=== PATIENT | female | born 1960 | race Caucasian/White ===

== ENCOUNTER 2025-01-20 10:25 | Outpatient (CLI) | payer MEDICARE, OTHER ==
--- NOTE | 2025-01-20 13:23 | RADIOLOGY REPORT ---
INDICATION: CAROTID BRUIT COMPARISON: None TECHNIQUE: CTA neck with intravenous contrast. 3D image postprocessing was performed on a dedicated workstation and images were used for interpretation and reporting. Radiation Dose Information: CT Dose: CTDI volume is 17.9 mGy. Dose-length product is 483.6 mGy*cm FINDINGS: CTA neck: The visualized thoracic aortic arch and proximal great vessels are unremarkable. Approximately 50% short-segment stenosis of the proximal bilateral internal carotid artery secondary to presence of atherosclerotic plaque. The cervical segments of the right and left vertebral arteries are within normal limits. The limited visualized lung apices are clear. Degenerative changes of the spine. IMPRESSION: Approximately 50% short-segment stenosis of the proximal bilateral internal carotid artery secondary to presence of atherosclerotic plaque. All CT scans at this medical facility are performed using dose modulation techniques as appropriate to a performed exam including the following: Automated exposure control was utilized; adjustment of the MA and/or KV according to patient size; and use of iterative reconstruction technique.
== END 2025-01-20 23:59 | disposition home or self-care (01) ==
LOC: RAD 10:25
PROVIDERS: ATTEND Internal Medicine Interventional Cardiology
DX: I65.23 Occlusion and stenosis of bilateral carotid arteries (principal); R09.89 Other specified symptoms and signs involving the circulatory and respiratory systems
CPT/HCPCS: 70498; Q9967